=== PATIENT | female | born 1935 | race Caucasian/White ===

== ENCOUNTER 2021-04-01 19:59 | Emergency (ER) | payer MEDICARE ==
[~2021-04-01] VITALS: Ht 160 cm; Wt 77.1 kg
[2021-04-01 20:12] VITALS: BP 170/80
--- NOTE | 2021-04-01 20:15 | NUR ---
PT TO [facility] VIA W/C
== END 2021-04-01 21:03 | disposition left against medical advice (07) ==
LOC: MED 19:59
DX: M79.606 Pain in leg, unspecified (principal); Z53.21 Procedure and treatment not carried out due to patient leaving prior to being seen by health care provider

== ENCOUNTER 2024-01-17 11:02 | Emergency (ER) | payer MEDICARE ==
[~2024-01-17] VITALS: Ht 162.6 cm; Wt 72.6 kg
[2024-01-17 11:08] VITALS: BP 180/92; PULSE 111; RESP 15; TEMP 98.1; O2SAT 97
[2024-01-17 11:56] LABS: BASOPHILS % (AUTO) 0.4 % (0.0-2.0); EOSINOPHILS % (AUTO) 0.2 % (0.0-4.0); HEMATOCRIT 42.2 % (36-48); HEMOGLOBIN 14.1 g/dL (12.0-16.0); LYMPHOCYTES # (AUTO) 1.1 K/uL (2.5-16.5); LYMPHOCYTES % (AUTO) 10.6 % (20.5-51.1); MEAN CORPUSCULAR HEMOGLOBIN 31 pg (27-31); MEAN CORPUSCULAR HGB CONC 33 g/dL (33-37); MEAN CORPUSCULAR VOLUME 91.2 fL (80-94); MONOCYTES # (AUTO) 0.4 K/uL (0.8-1.0); MONOCYTES % (AUTO) 4.3 % (1.7-9.3); NEUTROPHILS # (AUTO) 8.7 K/uL (1.8-7.7); NEUTROPHILS % (AUTO) 84.5 % (42.2-75.2); PLATELET COUNT (AUTO) 179 K/uL (140-450); RED BLOOD CELL COUNT(AUTO) 4.63 MIL/uL (4.20-5.40); RED CELL DISTRIBUTION WIDTH 14.3 % (11.6-13.7); WHITE BLOOD COUNT (AUTO) 10.3 K/uL (4.8-10.8)
[2024-01-17 12:13] LABS: ANION GAP 17.9 (8-16); CALCIUM 9.3 mg/dL (8.5-10.1); CARBON DIOXIDE 23.6 mmol/L (21-32); CHLORIDE 103 mmol/L (98-107); CREATININE 1.1 mg/dL (0.6-1.3); GLUCOSE 202 mg/dL (74-106); POTASSIUM 3.5 mmol/L (3.5-5.1); SODIUM SERUM 141 mmol/L (136-145); UREA NITROGEN, BLOOD 17 mg/dL (7-18)
[2024-01-17 12:28] LABS: LACTIC ACID 3.2 mmol/L (0.4-2.0)
[2024-01-17] MEDS ORDERED: LEVOFLOXACIN 500 MG/D5W PREMIX 100 ML IV ONE (13:25)
[2024-01-17] MEDS: NACL 0.9% 1,000 ML IV SCH (13:32)
[2024-01-17] MEDS: LEVOFLOXACIN 500 MG/D5W PREMIX 100 ML IV ONE (13:37)
[2024-01-17 14:10] LABS: BILIRUBIN,URINE NEGATIVE (NEGATIVE); BLOOD, URINE 1+ (NEGATIVE); COLOR,URINE YELLOW (YELLOW); LEUKOCYTE ESTERASE ,URINE 2+ (NEGATIVE); NITRITE, URINE POSITIVE (NEGATIVE); PROTEIN,URINE 3+ (NEGATIVE); UGLUCOSE NEGATIVE (NEGATIVE); UROBILINOGEN,URINE 0.2 EU/dL (0.2 - 1)
[2024-01-17 14:11] LABS: APPEARANCE,URINE SLIGHTLY CLOUDY (CLEAR)
[2024-01-17 14:12] LABS: RBC,URINE 0-5 /HPF (0-5)
[2024-01-17 14:13] LABS: BACTERIA,URINE 3+ /HPF (None Seen); MUCUS,URINE None Seen /LPF (None Seen); SQUAMOUS EPITHELIAL CELL,UR 4-10 (MOD) /LPF (0-3 (FEW))
[2024-01-17] MEDS ORDERED: MORPHINE SULFATE 4 MG/ML SYR IVP ONE (15:25)
[2024-01-17 16:25] LABS: FLU A ANTIGEN negative (NEGATIVE); FLU B ANTIGEN NEGATIVE (NEGATIVE)
[2024-01-17 18:45] VITALS: BP 167/64; PULSE 86; RESP 33; TEMP 98.1; O2SAT 96
== END 2024-01-17 18:45 | disposition short-term general hospital (02) ==
LOC: MED 11:02
DX: R40.4 Transient alteration of awareness (principal); N39.0 Urinary tract infection, site not specified; J18.9 Pneumonia, unspecified organism; R79.89 Other specified abnormal findings of blood chemistry; Z20.822 Contact with and (suspected) exposure to COVID-19; I10 Essential (primary) hypertension; Z95.0 Presence of cardiac pacemaker; Z88.0 Allergy status to penicillin; Z91.040 Latex allergy status
CPT/HCPCS: 36415; 70450; 71045; 80048; 81001; 83605; 83880; 84484; 85025; 87040; 87086; 87186; 87426; 87804; 93005; 96365; 99285; J1956; J7030